=== PATIENT | male | born 1990 | race Two or more races ===

== ENCOUNTER → 2022-07-03 14:54 | Outpatient (BNVA) | payer OTHER, SELFPAY | PROVIDERS: Visit Provider Nurse Practitioner Psychiatric/Mental Health | DX: F11.20 Opioid dependence, uncomplicated (principal) | CPT/HCPCS: 80305; 99212 ==

== ENCOUNTER → 2022-07-10 15:17 | Outpatient (BNVA) | payer OTHER, SELFPAY | PROVIDERS: Visit Provider Nurse Practitioner Psychiatric/Mental Health | DX: F11.20 Opioid dependence, uncomplicated (principal); R61 Generalized hyperhidrosis; Z51.81 Encounter for therapeutic drug level monitoring | CPT/HCPCS: 80305; 99212 ==

== ENCOUNTER → 2022-07-17 14:36 | Outpatient (BNVA) | payer OTHER, SELFPAY | PROVIDERS: Visit Provider Nurse Practitioner Psychiatric/Mental Health | DX: Z51.81 Encounter for therapeutic drug level monitoring (principal); F11.20 Opioid dependence, uncomplicated | CPT/HCPCS: 80305; 99212 ==

== ENCOUNTER → 2022-07-28 14:55 | Outpatient (BNVA) | payer OTHER, SELFPAY | PROVIDERS: Visit Provider Nurse Practitioner Psychiatric/Mental Health | DX: Z51.81 Encounter for therapeutic drug level monitoring (principal); F11.20 Opioid dependence, uncomplicated | CPT/HCPCS: 99212 ==

== ENCOUNTER → 2022-08-05 10:56 | Outpatient (BNVA) | payer OTHER, SELFPAY | PROVIDERS: Visit Provider Nurse Practitioner Psychiatric/Mental Health | DX: F11.20 Opioid dependence, uncomplicated (principal) | CPT/HCPCS: 80305; 99212 ==

== ENCOUNTER → 2022-08-12 10:04 | Outpatient (BNVA) | payer OTHER, SELFPAY | PROVIDERS: Visit Provider Nurse Practitioner Psychiatric/Mental Health | DX: Z51.81 Encounter for therapeutic drug level monitoring (principal); F11.20 Opioid dependence, uncomplicated | CPT/HCPCS: 80305; 99212 ==

== ENCOUNTER → 2022-08-20 16:29 | Outpatient (BNVA) | payer OTHER, SELFPAY | PROVIDERS: Visit Provider Nurse Practitioner Psychiatric/Mental Health | DX: F11.20 Opioid dependence, uncomplicated (principal) | CPT/HCPCS: 99212 ==

== ENCOUNTER → 2022-09-04 16:18 | Outpatient (BNVA) | payer OTHER, SELFPAY | PROVIDERS: Visit Provider Nurse Practitioner Psychiatric/Mental Health | DX: F11.20 Opioid dependence, uncomplicated (principal) | CPT/HCPCS: 99212 ==

== ENCOUNTER → 2022-10-02 10:18 | Outpatient (BNVA) | payer OTHER, SELFPAY | PROVIDERS: Visit Provider Nurse Practitioner Psychiatric/Mental Health | DX: Z51.81 Encounter for therapeutic drug level monitoring (principal); F11.20 Opioid dependence, uncomplicated | CPT/HCPCS: 80305; 99212 ==

== ENCOUNTER → 2022-10-30 15:47 | Outpatient (BNVA) | payer OTHER, SELFPAY | PROVIDERS: Visit Provider Nurse Practitioner Psychiatric/Mental Health | DX: F11.20 Opioid dependence, uncomplicated (principal); Z51.81 Encounter for therapeutic drug level monitoring; Z79.899 Other long term (current) drug therapy | CPT/HCPCS: 99212 ==

== ENCOUNTER → 2022-11-27 16:35 | Outpatient (BNVA) | payer OTHER, SELFPAY | PROVIDERS: Visit Provider Nurse Practitioner Psychiatric/Mental Health | DX: Z51.81 Encounter for therapeutic drug level monitoring (principal); F11.20 Opioid dependence, uncomplicated | CPT/HCPCS: 99212 ==

== ENCOUNTER → 2022-12-25 16:23 | Outpatient (BNVA) | payer OTHER, SELFPAY | PROVIDERS: Visit Provider Nurse Practitioner Psychiatric/Mental Health | DX: Z51.81 Encounter for therapeutic drug level monitoring (principal); F11.20 Opioid dependence, uncomplicated | CPT/HCPCS: 99212 ==

== ENCOUNTER 2023-01-26 15:19 | Outpatient (AMB) | payer OTHER, SELFPAY ==
--- NOTE | 2023-01-26 15:19 | MHC.OFFVIS ---
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 Currently prescribed Suboxone 12 mg b.i.d.. Reports that he continues to do well with recovery. Denies any side effects related to medication. Reporting that he is currently looking for a new place to live as he has to leave his current residence by the end of the month. He reports that he has several people assisting him with this. Still has not completed lab work. Reminded that this needs to happen. Review of Systems Const Reports as per HPI and Reports no additional complaints Physical Exam Vital Signs: Last Vital Signs Pulse 78 01/26/23 15:27 BP 126/70 01/26/23 15:27 Pulse Ox 95 01/26/23 15:27 Oxygen Delivery Method Room Air 01/26/23 15:27 Const General: cooperative, healthy appearing, no acute distress and alert Nutritional Appearance: average body habitus Orientation/consciousness: patient oriented x3 Limitations: no limitations Neuro General: patient oriented x3 Psych Appearance: grossly normal Mental Status: mental status grossly normal Speech and movement: Normal speech and movement present Affect: normal affect Attitude: cooperative Thought process: Normal thought process present Thought content: Normal thought content present Insight: Good insight present (Psych) Judgement: Good judgement present (Psych) Results AMB 14 Panel Urine Drug Screen Urine Marijuana (THC) Positive Last Edit by Fadumo Arreola CMA on 01/26/23 15:29 Urine Cocaine Negative Last Edit by Fadumo Arreola CMA on 01/26/23 15:29 Urine Morphine Negative Last Edit by Fadumo Arreola CMA on 01/26/23 15:29 Urine Methamphetamine Negative Last Edit by Fadumo Arreola CMA on 01/26/23 15:29 Urine Amphetamine Negative Last Edit by Fadumo Arreola CMA on 01/26/23 15:29 Urine Benzodiazepine Negative Last Edit by Fadumo Arreola CMA on 01/26/23 15:29 Urine Barbiturates Negative Last Edit by Fadumo Arreola CMA on 01/26/23 15:29 Urine Methadone Negative Last Edit by Fadumo Arreola CMA on 01/26/23 15:29 Urine Buprenorphine Positive Last Edit by Fadumo Arreola CMA on 01/26/23 15:29 Urine Tricyclic Antidepressant Negative Last Edit by Fadumo Arreola CMA on 01/26/23 15:29 Urine MDMA Negative Last Edit by Fadumo Arreola CMA on 01/26/23 15:29 Urine Oxycodone Negative Last Edit by Fadumo Arreola CMA on 01/26/23 15:29 Urine Phencyclidine Negative Last Edit by Fadumo Arreola CMA on 01/26/23 15:29 Urine Propoxyphene Negative Last Edit by Fadumo Arreola CMA on 01/26/23 15:29 Results Reviewed Results Reviewed: Laboratory Last Values POC Urine Buprenorphine Positive 01/26/23 15:21 POC Urine Morphine Negative 01/26/23 15:21 POC Urine Oxycodone Negative 01/26/23 15:21 POC Urine Methadone Negative 01/26/23 15:21 POC Urine Propoxyphene Negative 01/26/23 15:21 POC Urine Barbiturates Negative 01/26/23 15:21 POC U Tricyclic Antidpr Negative 01/26/23 15:21 POC Urine PCP Negative 01/26/23 15:21 POC Ur Amphetamines Negative 01/26/23 15:21 POC Ur Methamphetamine Negative 01/26/23 15:21 POC Urine MDMA Negative 01/26/23 15:21 POC Ur Benzodiazepine Negative 01/26/23 15:21 POC Urine Cocaine Negative 01/26/23 15:21 POC Ur Marijuana (THC) Positive 01/26/23 15:21 Assessment & Plan Assessment & Plan (1) Opioid use disorder, moderate, dependence: Comment: Doing well with current suboxone dose, no concerns. Code(s): F11.20 - Opioid dependence, uncomplicated Plan 1. Continue with current suboxone dose. 2. Risk reduction discussion. 3. Follow-up in one month. labs to be completed prior to appointment Orders: Orders AMB 14 Panel Urine Drug Screen 01/26/23 Z51.81 - Encounter for therapeutic drug level monitoring Medications: Refilled buprenorphine-naloxone 12-3 mg (Suboxone) Okay for early refill 1 film sublingual BID 60 ea 0RF 30 days Discontinued hydroxyzine HCl Discontinued Reason: Patient Completed Course 50 mg PO QID PRN 28 tabs 0RF anxiety, sleep loperamide (Anti-Diarrheal (loperamide)) Discontinued Reason: Patient Completed Course As needed for diarrhea. Take 2 tablets as your 1st dose. Take 1 additional tablet after each episode of diarrhea. Do not use more than 6 tablets in 1 day. 28 caps 0RF loose stool digital therapeutics, OUD (Reset-O Digital Neelima (OUD)) Discontinued Reason: Patient Completed Course As directed (3-4 times a week) 84 days 1 ea 3RF OUD F11.10 - Opioid abuse, uncomplicated clonidine HCl Discontinued Reason: Patient Completed Course 0.1 mg PO Q6H PRN 28 tabs 0RF opioid withdrawals ondansetron HCl Discontinued Reason: Patient Completed Course 4 mg PO Q6H PRN 28 tabs 0RF nausea and vomiting digital therapeutics, OUD (Reset-O Digital Neelima (OUD)) Discontinued Reason: Patient Completed Course As directed (3-4 times a week) 84 days 1 ea 3RF OUD F11.10 - Opioid abuse, uncomplicated Coding Level of Care Code Est Pt Level 3 (44640) Diagnoses Opioid use disorder, moderate, dependence F11.20
[2023-01-26 15:27] VITALS: BP 126/70; PULSE 78; O2SAT 95
== END 2023-01-26 15:35 | disposition home or self-care (01) ==
LOC: HO.HCC 15:19
PROVIDERS: Visit Provider Nurse Practitioner Psychiatric/Mental Health
DX: F11.20 Opioid dependence, uncomplicated (principal)
CPT/HCPCS: 99213

== ENCOUNTER → 2023-01-26 15:19 | Outpatient (BNVA) | payer OTHER, SELFPAY | PROVIDERS: Visit Provider Nurse Practitioner Psychiatric/Mental Health | DX: Z51.81 Encounter for therapeutic drug level monitoring (principal); F11.20 Opioid dependence, uncomplicated | CPT/HCPCS: 80305; 99212 ==

== ENCOUNTER 2023-03-25 16:18 | Outpatient (AMB) | payer OTHER, SELFPAY ==
--- NOTE | 2023-03-25 16:20 | A.OFFVIS_ITS ---
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 Allergies acetaminophen [From VICODIN] Allergy (Unknown, Unverified 03/25/23 16:23) RASH hydrocodone [From VICODIN] Allergy (Unknown, Unverified 03/25/23 16:23) RASH ibuprofen [IBUPROFEN] Allergy (Unknown, Unverified 03/25/23 16:23) STOMACH PAIN Do you need a note to return to daycare/school/sports/work: No Physical Exam Vital Signs: Last Vital Signs Pulse 72 03/25/23 16:28 BP 110/68 03/25/23 16:28 Pulse Ox 96 03/25/23 16:28 Oxygen Delivery Method Room Air 03/25/23 16:28 Results AMB 14 Panel Urine Drug Screen Urine Marijuana (THC) Positive Last Edit by Fadumo Arreola CMA on 03/25/23 16:29 Urine Cocaine Negative Last Edit by Fadumo Arreola CMA on 03/25/23 16:29 Urine Morphine Negative Last Edit by Fadumo Arreola CMA on 03/25/23 16:29 Urine Methamphetamine Negative Last Edit by Fadumo Arreola CMA on 03/25/23 16:29 Urine Amphetamine Negative Last Edit by Fadumo Arreola CMA on 03/25/23 16:2 9 Urine Benzodiazepine Negative Last Edit by Fadumo Arreola CMA on 03/25/23 16:29 Urine Barbiturates Negative Last Edit by Fadumo Arreola CMA on 03/25/23 16: 29 Urine Methadone Negative Last Edit by Fadumo Arreola CMA on 03/25/23 16:29 Urine Buprenorphine Positive Last Edit by Fadumo Arreola CMA on 03/25/23 16 :29 Urine Tricyclic Antidepressant Negative Last Edit by Fadumo Arreola CMA on 03/25/23 16:29 Urine MDMA Negative Last Edit by Fadumo Arreola CMA on 03/25/23 16:29 Urine Oxycodone Negative Last Edit by Fadumo Arreola CMA on 03/25/23 16:29 Urine Phencyclidine Negative Last Edit by Fadumo Arreola CMA on 03/25/23 16 :29 Urine Propoxyphene Negative Last Edit by Fadumo Arreola CMA on 03/25/23 16: 29 Results Reviewed Results Reviewed: Laboratory Last Values POC Urine Buprenorphine Positive 03/25/23 16:23 POC Urine Morphine Negative 03/25/23 16:23 POC Urine Oxycodone Negative 03/25/23 16:23 POC Urine Methadone Negative 03/25/23 16:23 POC Urine Propoxyphene Negative 03/25/23 16:23 POC Urine Barbiturates Negative 03/25/23 16:23 POC U Tricyclic Antidpr Negative 03/25/23 16:23 POC Urine PCP Negative 03/25/23 16:23 POC Ur Amphetamines Negative 03/25/23 16:23 POC Ur Methamphetamine Negative 03/25/23 16:23 POC Urine MDMA Negative 03/25/23 16:23 POC Ur Benzodiazepine Negative 03/25/23 16:23 POC Urine Cocaine Negative 03/25/23 16:23 POC Ur Marijuana (THC) Positive 03/25/23 16:23 Assessment & Plan Assessment & Plan Orders: Orders AMB 14 Panel Urine Drug Screen Today Z51.81 - Encounter for therapeutic drug level monitoring Coding
[2023-03-25 16:28] VITALS: BP 110/68; PULSE 72; O2SAT 96
--- NOTE | 2023-03-25 16:40 | AM.OFFVISNUR ---
Intake Vital Signs 03/25/23 16:28 BP 110/68 Blood Pressure Location Lt radial Position Sitting Pulse 72 Pulse Source Pulse Oximeter Pulse Oximetry (%) 96 Oxygen Delivery Method Room Air Intake Visit Reasons: mat visit Allergies acetaminophen [From VICODIN] Allergy (Unknown, Unverified 03/25/23 16:23) RASH hydrocodone [From VICODIN] Allergy (Unknown, Unverified 03/25/23 16:23) RASH ibuprofen [IBUPROFEN] Allergy (Unknown, Unverified 03/25/23 16:23) STOMACH PAIN Nursing Note Pt here for 4 week OUD follow up. Pt reports difficulty with transportation as barrier to making scheduled appts. Pt reports doing well on 12mg BUP daily. Pt denies cravings, withdrawal. Pt reports is working hard and does not think about using. Reviewed importance of lab work to be completed. Pt reports is afraid of needles, reviewed coping strategies, hydrating, stress ball. Pt verbalized understanding. Pt looking for housing. Appt in 4 weeks, reiterated importance of lab work prior to next appt. Refill sent to Provider. Results AMB 14 Panel Urine Drug Screen Urine Marijuana (THC) Positive Last Edit by Fadumo Arreola CMA on 03/25/23 16:29 Urine Cocaine Negative Last Edit by Fadumo Arreola CMA on 03/25/23 16:29 Urine Morphine Negative Last Edit by Fadumo Arreola CMA on 03/25/23 16:29 Urine Methamphetamine Negative Last Edit by Fadumo Arreola CMA on 03/25/23 16:29 Urine Amphetamine Negative Last Edit by Fadumo Arreola CMA on 03/25/23 16:29 Urine Benzodiazepine Negative Last Edit by Fadumo Arreola CMA on 03/25/23 16:29 Urine Barbiturates Negative Last Edit by Fadumo Arreola CMA on 03/25/23 16:29 Urine Methadone Negative Last Edit by Fadumo Arreola CMA on 03/25/23 16:29 Urine Buprenorphine Positive Last Edit by Fadumo Arreola CMA on 03/25/23 16:29 Urine Tricyclic Antidepressant Negative Last Edit by Fadumo Arreola CMA on 03/25/23 16:29 Urine MDMA Negative Last Edit by Fadumo Arreola CMA on 03/25/23 16:29 Urine Oxycodone Negative Last Edit by Fadumo Arreola CMA on 03/25/23 16:29 Urine Phencyclidine Negative Last Edit by Fadumo Arreola CMA on 03/25/23 16:29 Urine Propoxyphene Negative Last Edit by Fadumo Arreola CMA on 03/25/23 16:29 Coding Assessment & Plan Assessment & Plan Orders: Orders AMB 14 Panel Urine Drug Screen Today Z51.81 - Encounter for therapeutic drug level monitoring
== END 2023-03-25 16:42 | disposition home or self-care (01) ==
LOC: HO.HCC 16:18
PROVIDERS: Visit Provider Nurse Practitioner Psychiatric/Mental Health
DX: Z51.81 Encounter for therapeutic drug level monitoring (principal)

== ENCOUNTER → 2023-03-25 16:18 | Outpatient (BNVA) | payer OTHER, SELFPAY | PROVIDERS: Visit Provider Nurse Practitioner Psychiatric/Mental Health | DX: F11.20 Opioid dependence, uncomplicated (principal); Z51.81 Encounter for therapeutic drug level monitoring; Z79.899 Other long term (current) drug therapy | CPT/HCPCS: 80305 ==

== ENCOUNTER 2023-04-23 15:50 | Outpatient (REF) | payer OTHER, SELFPAY | END 2023-04-23 15:51 | disposition home or self-care (01) | LOC: HO.LAB 15:50 | PROVIDERS: Visit Provider Nurse Practitioner Psychiatric/Mental Health | DX: F11.20 Opioid dependence, uncomplicated (principal) | CPT/HCPCS: 36415; 80076; 86704; 86706; 86709; 86803; 87340; 99212 ==

== ENCOUNTER 2023-04-23 16:06 | Outpatient (AMB) | payer OTHER, SELFPAY ==
[2023-04-23 16:10] VITALS: BP 130/70; PULSE 78; O2SAT 98
--- NOTE | 2023-04-23 16:10 | MHC.OFFVIS ---
Intake Vital Signs 04/23/23 16:10 BP 130/70 Blood Pressure Location Lt radial Position Sitting Pulse 78 Pulse Source Pulse Oximeter Pulse Oximetry (%) 98 Oxygen Delivery Method Room Air Intake Visit Reasons: mat visit Intake Note: the patient presents for a mat visit Allergies acetaminophen [From VICODIN] Allergy (Unknown, Unverified 04/23/23 16:12) RASH hydrocodone [From VICODIN] Allergy (Unknown, Unverified 04/23/23 16:12) RASH ibuprofen [IBUPROFEN] Allergy (Unknown, Unverified 04/23/23 16:12) STOMACH PAIN Do you need a note to return to daycare/school/sports/work: No HPI mat visit HPI Details Pt presents for OUD treatment follow up Currently being prescribed SUboxone 12mg BID Denies any side effects related to medication completed lab work Review of Systems Const Reports as per HPI and Reports no additional complaints Physical Exam Vital Signs: Last Vital Signs Pulse 78 04/23/23 16:10 BP 130/70 04/23/23 16:10 Pulse Ox 98 04/23/23 16:10 Oxygen Delivery Method Room Air 04/23/23 16:10 Const General: cooperative, healthy appearing, no acute distress and alert Nutritional Appearance: average body habitus Orientation/consciousness: patient oriented x3 Limitations: no limitations Neuro General: patient oriented x3 Psych Appearance: grossly normal Mental Status: mental status grossly normal Speech and movement: Normal speech and movement present Affect: normal affect Attitude: cooperative Thought process: Normal thought process present Thought content: Normal thought content present Insight: Good insight present (Psych) Judgement: Good judgement present (Psych) Assessment & Plan Assessment & Plan (1) Opioid use disorder, moderate, dependence: Code(s): F11.20 - Opioid dependence, uncomplicated Plan: 1. Continue with current suboxone dose. 2. Risk reduction discussion. 3. Follow-up in one month. Medications: Changed From buprenorphine-naloxone 12-3 mg 1 film sublingual BID 14 days 28 ea 0RF To buprenorphine-naloxone 12-3 mg (Suboxone) 1 film sublingual BID 60 ea 0RF Coding Level of Care Code Est Pt Level 3 (22156) Diagnoses Opioid use disorder, moderate, dependence F11.20
== END 2023-04-23 16:27 | disposition home or self-care (01) ==
PROVIDERS: Visit Provider Nurse Practitioner Psychiatric/Mental Health
DX: F11.20 Opioid dependence, uncomplicated (principal)
CPT/HCPCS: 99213

== ENCOUNTER 2023-05-21 14:52 | Outpatient (AMB) | payer OTHER, SELFPAY ==
--- NOTE | 2023-05-21 15:25 | A.OFFVIS_ITS ---
Intake Vital Signs 05/21/23 15:26 BP 138/64 Blood Pressure Location Rt brachial Position Sitting Pulse 85 Pulse Source Pulse Oximeter Pulse Oximetry (%) 95 Oxygen Delivery Method Room Air Intake Visit Reasons: MAT Visit Allergies acetaminophen [From VICODIN] Allergy (Unknown, Unverified 04/23/23 16:12) RASH hydrocodone [From VICODIN] Allergy (Unknown, Unverified 04/23/23 16:12) RASH ibuprofen [IBUPROFEN] Allergy (Unknown, Unverified 04/23/23 16:12) STOMACH PAIN HPI MAT Visit HPI Details Presents for OUD treatment and follow up. Has been busy working, states he has been working 7 days a week- reminded to take time for self care and rest. Denies any concerns about recovery, says he has been in recovery for 5-6 months. No concerns about any side effects. Physical Exam Vital Signs: Last Vital Signs Pulse 85 05/21/23 15:26 BP 138/64 05/21/23 15:26 Pulse Ox 95 05/21/23 15:26 Oxygen Delivery Method Room Air 05/21/23 15:26 Const General: cooperative and healthy appearing Orientation/consciousness: patient oriented x3 Resp Effort & Inspection: normal respiratory effort Skin General skin exam: no rashes or lesions noted Neuro General: patient oriented x3 Psych Appearance: grossly normal and disheveled Mental Status: mental status grossly normal Affect: normal affect Attitude: cooperative Thought process: Normal thought process present Thought content: Normal thought content present Assessment & Plan Assessment & Plan (1) Opioid use disorder, moderate, dependence: Code(s): F11.20 - Opioid dependence, uncomplicated Plan: Continue suboxone- same dose Recovery supports discussed, 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 Follow up in 4 weeks. Plan reviewed with SUSI Hill Medications: Refilled buprenorphine-naloxone 12-3 mg (Suboxone) 1 film sublingual BID 60 ea 0RF Coding Level of Care Code Est Pt Level 3 (16106) Diagnoses Opioid use disorder, moderate, dependence F11.20
[2023-05-21 15:26] VITALS: BP 138/64; PULSE 85; O2SAT 95
== END 2023-05-21 15:14 | disposition home or self-care (01) ==
PROVIDERS: Visit Provider Nurse Practitioner Psychiatric/Mental Health
DX: F11.20 Opioid dependence, uncomplicated (principal)
CPT/HCPCS: 99213

== ENCOUNTER → 2023-05-21 14:52 | Outpatient (BNVA) | payer OTHER, SELFPAY | PROVIDERS: Visit Provider Nurse Practitioner Psychiatric/Mental Health | DX: F11.20 Opioid dependence, uncomplicated (principal) | CPT/HCPCS: 99212 ==

== ENCOUNTER 2023-06-18 16:34 | Outpatient (AMB) | payer OTHER, SELFPAY ==
--- NOTE | 2023-06-18 16:35 | MHC.AM.SUB ---
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 Allergies acetaminophen [From VICODIN] Allergy (Unknown, Unverified 06/18/23 16:41) RASH hydrocodone [From VICODIN] Allergy (Unknown, Unverified 06/18/23 16:41) RASH ibuprofen [IBUPROFEN] Allergy (Unknown, Unverified 06/18/23 16:41) STOMACH PAIN Do you need a note to return to daycare/school/sports/work: No HPI MAT Visit HPI Details Pt presents for OUD treatment follow up Currently being prescribed Suboxone 12mg BID Denies any side effects related to medication 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 Doing well overall, no questions or concerns at this time [facility] Medical History (Updated 06/23/23 @ 14:53 by Kasey Delarosa CNP) Opioid use disorder, moderate, dependence Review of Systems Const Reports as per HPI and Reports no additional complaints Physical Exam Vital Signs: Last Vital Signs Pulse 86 06/18/23 16:38 BP 140/88 H 06/18/23 16:38 Pulse Ox 97 06/18/23 16:38 Oxygen Delivery Method Room Air 06/18/23 16:38 Const General: cooperative and healthy appearing Orientation/consciousness: patient oriented x3 Skin General skin exam: no rashes or lesions noted Neuro General: patient oriented x3 Psych Appearance: grossly normal Mental Status: mental status grossly normal Affect: normal affect Attitude: cooperative Thought process: Normal thought process present Thought content: Normal thought content present Assessment & Plan Assessment & Plan (1) Opioid use disorder, moderate, in early remission: Code(s): F11.21 - Opioid dependence, in remission Plan: Continue Suboxone at current dose Follow up 4 weeks Medications: Refilled buprenorphine-naloxone 12-3 mg (Suboxone) 1 film sublingual BID 60 ea 0RF Coding Level of Care Code Est Pt Level 3 (82678) Diagnoses Opioid use disorder, moderate, in early remission F11.21
[2023-06-18 16:38] VITALS: BP 140/88; PULSE 86; O2SAT 97
== END 2023-06-18 16:52 | disposition home or self-care (01) ==
PROVIDERS: Visit Provider Nurse Practitioner Psychiatric/Mental Health
DX: F11.21 Opioid dependence, in remission (principal)
CPT/HCPCS: 99213

== ENCOUNTER → 2023-06-18 16:34 | Outpatient (BNVA) | payer OTHER, SELFPAY | PROVIDERS: Visit Provider Nurse Practitioner Psychiatric/Mental Health | DX: F11.21 Opioid dependence, in remission (principal) | CPT/HCPCS: 99212 ==

== ENCOUNTER 2023-08-27 11:23 | Outpatient (AMB) | payer OTHER, SELFPAY ==
--- NOTE | 2023-08-27 11:24 | A.OFFVISCC_ITS ---
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 just starting to feel sick/withdrawal symptoms today Has been tolerating 12mg bid, denies concerns for side effects [facility] Medical History (Updated 06/23/23 @ 14:53 by Kasey Delarosa CNP) Opioid use disorder, moderate, dependence Review of Systems Const Reports as per HPI Physical Exam Vital Signs: Last Vital Signs Pulse 82 08/27/23 11:29 BP 118/80 08/27/23 11:29 Pulse Ox 96 08/27/23 11:29 Oxygen Delivery Method Room Air 08/27/23 11:29 Const General: cooperative and healthy appearing Resp Effort & Inspection: normal respiratory effort Psych Appearance: grossly normal Mental Status: mental status grossly normal Speech and movement: Normal speech and movement present Affect: normal affect Attitude: cooperative Assessment & Plan Assessment & Plan (1) Opioid use disorder, moderate, in early remission: Code(s): F11.21 - Opioid dependence, in remission Plan: -Mass pat reviewed -Refill suboxone 12mg bid -Follow up 4 weeks -Reviewed with him he can call [facility] if he needs to be seen sooner Medications: Refilled buprenorphine-naloxone 12-3 mg (Suboxone) 1 film sublingual BID 60 ea 0RF Coding Level of Care Code Est Pt Level 3 (98104) Diagnoses Opioid use disorder, moderate, in early remission F11.21
[2023-08-27 11:29] VITALS: BP 118/80; PULSE 82; O2SAT 96
== END 2023-08-27 13:02 | disposition home or self-care (01) ==
PROVIDERS: Visit Provider Nurse Practitioner Family
DX: F11.21 Opioid dependence, in remission (principal)
CPT/HCPCS: 99213

== ENCOUNTER → 2023-08-27 11:23 | Outpatient (BNVA) | payer OTHER, SELFPAY | PROVIDERS: Visit Provider Nurse Practitioner Family | DX: F11.21 Opioid dependence, in remission (principal) | CPT/HCPCS: 99212 ==

== ENCOUNTER 2023-09-23 16:49 | Outpatient (AMB) | payer OTHER, SELFPAY ==
--- NOTE | 2023-09-23 16:50 | MHC.AM.SUB ---
Intake Vital Signs 09/23/23 17:01 BP 124/78 Blood Pressure Location Lt radial Position Sitting Pulse 78 Pulse Source Pulse Oximeter Pulse Oximetry (%) 97 Oxygen Delivery Method Room Air Intake Visit Reasons: MAT Visit Intake Note: the patient presents for a mat visit Time Study Analyst Required: No Allergies acetaminophen [From VICODIN] Allergy (Unknown, Unverified 09/23/23 17:03) RASH hydrocodone [From VICODIN] Allergy (Unknown, Unverified 09/23/23 17:03) RASH ibuprofen [IBUPROFEN] Allergy (Unknown, Unverified 09/23/23 17:03) STOMACH PAIN Do you need a note to return to daycare/school/sports/work: No HPI MAT Visit HPI Details Patient presents for MAT appointment Reports he has been doing well, 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 been tolerating 12mg suboxone bid well Going to [place] for a week to visit family No concerns for recovery at this time [facility] Medical History (Updated 06/23/23 @ 14:53 by Kasey Delarosa CNP) Opioid use disorder, moderate, dependence Review of Systems Const Reports as per HPI Physical Exam Vital Signs: Last Vital Signs Pulse 78 09/23/23 17:01 BP 124/78 09/23/23 17:01 Pulse Ox 97 09/23/23 17:01 Oxygen Delivery Method Room Air 09/23/23 17:01 Const General: cooperative Resp Effort & Inspection: normal respiratory effort Psych Appearance: grossly normal Mental Status: mental status grossly normal Speech and movement: Normal speech and movement present Affect: normal affect Attitude: cooperative Thought process: Normal thought process present Results AMB 14 Panel Urine Drug Screen Urine Marijuana (THC) Positive Last Edit by Fadumo Arreola CMA on 09/23/23 17:04 Urine Cocaine Negative Last Edit by Fadumo Arreola CMA on 09/23/23 17:04 Urine Morphine Negative Last Edit by Fadumo Arreola CMA on 09/23/23 17:04 Urine Methamphetamine Negative Last Edit by Fadumo Arreola CMA on 09/23/23 17:04 Urine Amphetamine Negative Last Edit by Fadumo Arreola CMA on 09/23/23 17:04 Urine Benzodiazepine Negative Last Edit by Fadumo Arreola CMA on 09/23/23 17:04 Urine Barbiturates Negative Last Edit by Fadumo Arreola CMA on 09/23/23 17:04 Urine Methadone Negative Last Edit by aFdumo Arreola CMA on 09/23/23 17:04 Urine Buprenorphine Positive Last Edit by Fadumo Arreola CMA on 09/23/23 17:04 Urine Tricyclic Antidepressant Negative Last Edit by Fadumo Arreola CMA on 09/23/23 17:04 Urine MDMA Negative Last Edit by Fadumo Arreola CMA on 09/23/23 17:04 Urine Oxycodone Negative Last Edit by Fadumo Arreola CMA on 09/23/23 17:04 Urine Phencyclidine Negative Last Edit by Fadumo Arreola CMA on 09/23/23 17:04 Urine Propoxyphene Negative Last Edit by Fadumo Arreola CMA on 09/23/23 17:04 Results Reviewed Results Reviewed: Laboratory Last Values POC Urine Buprenorphine Positive 09/23/23 16:50 POC Urine Morphine Negative 09/23/23 16:50 POC Urine Oxycodone Negative 09/23/23 16:50 POC Urine Methadone Negative 09/23/23 16:50 POC Urine Propoxyphene Negative 09/23/23 16:50 POC Urine Barbiturates Negative 09/23/23 16:50 POC U Tricyclic Antidpr Negative 09/23/23 16:50 POC Urine PCP Negative 09/23/23 16:50 POC Ur Amphetamines Negative 09/23/23 16:50 POC Ur Methamphetamine Negative 09/23/23 16:50 POC Urine MDMA Negative 09/23/23 16:50 POC Ur Benzodiazepine Negative 09/23/23 16:50 POC Urine Cocaine Negative 09/23/23 16:50 POC Ur Marijuana (THC) Positive 09/23/23 16:50 Assessment & Plan Assessment & Plan (1) Opioid use disorder, moderate, in early remission: Code(s): F11.21 - Opioid dependence, in remission Plan: -Mass pat reviewed -Continue suboxone same dose -Follow up 4 weeks Orders: Orders AMB 14 Panel Urine Drug Screen 09/23/23 Z51.81 - Encounter for therapeutic drug level monitoring Medications: Refilled buprenorphine-naloxone 12-3 mg (Suboxone) 1 film sublingual BID 60 ea 0RF Coding Level of Care Code Est Pt Level 3 (84706) Diagnoses Opioid use disorder, moderate, in early remission F11.21
[2023-09-23 17:01] VITALS: BP 124/78; PULSE 78; O2SAT 97
== END 2023-09-23 17:08 | disposition home or self-care (01) ==
LOC: HO.HCC 16:50
PROVIDERS: Visit Provider Nurse Practitioner Family
DX: F11.21 Opioid dependence, in remission (principal)
CPT/HCPCS: 99213

== ENCOUNTER → 2023-09-23 16:49 | Outpatient (BNVA) | payer OTHER, SELFPAY | PROVIDERS: Visit Provider Nurse Practitioner Family | DX: F11.21 Opioid dependence, in remission (principal) | CPT/HCPCS: 80305; 99212 ==

== ENCOUNTER 2023-10-21 16:33 | Outpatient (AMB) | payer OTHER, SELFPAY ==
--- NOTE | 2023-10-21 16:35 | A.OFFVISCC_ITS ---
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: No Allergies acetaminophen [From VICODIN] Allergy (Unknown, Unverified 10/21/23 16:41) RASH hydrocodone [From VICODIN] Allergy (Unknown, Unverified 10/21/23 16:41) RASH ibuprofen [IBUPROFEN] Allergy (Unknown, Unverified 10/21/23 16:41) STOMACH PAIN Do you need a note to return to daycare/school/sports/work: No HPI mat visit HPI Details Pt presents for MAT visit Reports he was unable to go to [place] due to getting a partial refill instead of a whole refill He reports his boss has his films in his car, has had them for the past few days, boss went on mj and pt was left without his films Reports he is feeling badly and in withdrawal (hands visibly trembling, abd pain, nausea, sweats) States he almost relapsed Is hoping to go to [place] once he gets his script sorted out HPI Comments History of Present Illness Details Patient presents for MAT visit [facility] Medical History (Updated 06/23/23 @ 14:53 by Kasey Delarosa CNP) Opioid use disorder, moderate, dependence Review of Systems Const Reports as per HPI Physical Exam Vital Signs: Last Vital Signs Pulse 85 10/21/23 16:40 BP 128/86 10/21/23 16:40 Pulse Ox 96 10/21/23 16:40 Oxygen Delivery Method Room Air 10/21/23 16:40 Const General: cooperative, anxious and diaphoretic Resp Effort & Inspection: normal respiratory effort and able to speak in complete sentences Psych Appearance: disheveled Mental Status: mental status grossly normal Speech and movement: Psychomotor agitation in speech present Affect: Anxious affect present Attitude: cooperative Thought process: Normal thought process present Results AMB 14 Panel Urine Drug Screen Urine Marijuana (THC) Positive Last Edit by Fadumo Arreola CMA on 10/21/23 16:42 Urine Cocaine Negative Last Edit by Fadumo Arreola CMA on 10/21/23 16:42 Urine Morphine Negative Last Edit by Fadumo Arreola CMA on 10/21/23 16:42 Urine Methamphetamine Negative Last Edit by Fadumo Arreola CMA on 10/21/23 16:42 Urine Amphetamine Negative Last Edit by Fadumo Arreola CMA on 10/21/23 16:4 2 Urine Benzodiazepine Negative Last Edit by Fadumo Arreola CMA on 10/21/23 1 6: 42 Urine Barbiturates Negative Last Edit by Fadumo Arreola CMA on 10/21/23 16: 42 Urine Methadone Negative Last Edit by Fadumo Arreola CMA on 10/21/23 16:42 Urine Buprenorphine Positive Last Edit by Fadumo Arreola CMA on 10/21/23 16 :42 Urine Tricyclic Antidepressant Negative Last Edit by Fadumo Arreola CMA on 10/21/23 16:42 Urine MDMA Negative Last Edit by Fadumo Arreola CMA on 10/21/23 16:42 Urine Oxycodone Negative Last Edit by Fadumo Arreola CMA on 10/21/23 16:42 Urine Phencyclidine Negative Last Edit by Fadumo Arreola CMA on 10/21/23 16 :42 Urine Propoxyphene Negative Last Edit by Fadumo Arreola CMA on 10/21/23 16: 42 Results Reviewed Results Reviewed: Laboratory Last Values POC Urine Buprenorphine Positive 10/21/23 16:35 POC Urine Morphine Negative 10/21/23 16:35 POC Urine Oxycodone Negative 10/21/23 16:35 POC Urine Methadone Negative 10/21/23 16:35 POC Urine Propoxyphene Negative 10/21/23 16:35 POC Urine Barbiturates Negative 10/21/23 16:35 POC U Tricyclic Antidpr Negative 10/21/23 16:35 POC Urine PCP Negative 10/21/23 16:35 POC Ur Amphetamines Negative 10/21/23 16:35 POC Ur Methamphetamine Negative 10/21/23 16:35 POC Urine MDMA Negative 10/21/23 16:35 POC Ur Benzodiazepine Negative 10/21/23 16:35 POC Urine Cocaine Negative 10/21/23 16:35 POC Ur Marijuana (THC) Positive 10/21/23 16:35 Assessment & Plan Assessment & Plan (1) Opioid use disorder, moderate, in early remission: Code(s): F11.21 - Opioid dependence, in remission Plan: -Refilled suboxone 12mg BID -Request by pt to send to different pharmacy than originally sent to (pharmacy had none in stock) -Follow up 4 weeks, call clinic if needs to be seen sooner Orders: Orders AMB 14 Panel Urine Drug Screen 10/21/23 Z51.81 - Encounter for therapeutic drug level monitoring Medications: Refilled buprenorphine-naloxone 12-3 mg (Suboxone) 1 film sublingual BID 60 ea 0RF buprenorphine-naloxone 12-3 mg (Suboxone) 1 film sublingual BID 60 ea 0RF buprenorphine-naloxone 12-3 mg (Suboxone) 1 film sublingual BID 60 ea 0RF Coding Level of Care Code Est Pt Level 3 (71128) Diagnoses Opioid use disorder, moderate, in early remission F11.21
[2023-10-21 16:40] VITALS: BP 128/86; PULSE 85; O2SAT 96
== END 2023-10-21 16:57 | disposition home or self-care (01) ==
PROVIDERS: Visit Provider Nurse Practitioner Family
DX: F11.21 Opioid dependence, in remission (principal)
CPT/HCPCS: 99213

== ENCOUNTER → 2023-10-21 16:33 | Outpatient (BNVA) | payer OTHER, SELFPAY | PROVIDERS: Visit Provider Nurse Practitioner Family | DX: F11.21 Opioid dependence, in remission (principal); Z79.899 Other long term (current) drug therapy; Z51.81 Encounter for therapeutic drug level monitoring | CPT/HCPCS: 80305; 99212 ==

== ENCOUNTER 2023-12-21 16:15 | Outpatient (AMB) | payer OTHER, SELFPAY ==
--- NOTE | 2023-12-21 16:19 | A.OFFVISCC_ITS ---
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 from medications [facility] Medical History (Updated 12/22/23 @ 11:57 by Kasey Delarosa CNP) Opioid use disorder, moderate, in early remission Opioid use disorder, moderate, dependence Review of Systems Const Reports as per HPI and Reports no additional complaints Physical Exam Const General: cooperative, healthy appearing and no acute distress Nutritional Appearance: thin Orientation/consciousness: patient oriented x3 Limitations: no limitations Neuro General: patient oriented x3 Assessment & Plan Assessment & Plan (1) Opioid use disorder, moderate, in sustained remission: Code(s): F11.21 - Opioid dependence, in remission Category: Medical Plan: * continue suboxone at current dose * relapse prevention discussion * follow up 8 weeks * encouraged to call office with any questions * rx provided with one refill Medications: Refilled buprenorphine-naloxone 12-3 mg (Suboxone) 1 film sublingual BID 60 ea 0RF Ruthie Hill NP buprenorphine-naloxone 12-3 mg (Suboxone) 1 film sublingual BID 60 ea 1RF Kasey Delarosa CNP
== END 2023-12-21 16:38 | disposition home or self-care (01) ==
PROVIDERS: Visit Provider Nurse Practitioner Psychiatric/Mental Health
DX: F11.21 Opioid dependence, in remission (principal)
CPT/HCPCS: 99213

== ENCOUNTER → 2023-12-21 16:15 | Outpatient (BNVA) | payer OTHER, SELFPAY | PROVIDERS: Visit Provider Nurse Practitioner Psychiatric/Mental Health | DX: F11.20 Opioid dependence, uncomplicated (principal) | CPT/HCPCS: 99212 ==

== ENCOUNTER 2024-02-16 13:25 | Outpatient (AMB) | payer OTHER, SELFPAY ==
--- NOTE | 2024-02-16 13:35 | A.OFFVISCC_ITS ---
Intake Visit Reasons: mat visit Allergies acetaminophen [From VICODIN] Allergy (Unknown, Unverified 10/21/23 16:41) RASH hydrocodone [From VICODIN] Allergy (Unknown, Unverified 10/21/23 16:41) RASH ibuprofen [IBUPROFEN] Allergy (Unknown, Unverified 10/21/23 16:41) STOMACH PAIN HPI HPI mat visit: Details: Patient presents for follow up Currently prescribed Suboxone 12mg BID Doing well with current dose -no side effects reported Recently lost his job due to employer moving, he states this has caused an increase in stress and trouble sleeping PFS Medical History (Updated 12/22/23 @ 11:57 by Kasey Delarosa CNP) Opioid use disorder, moderate, in early remission Opioid use disorder, moderate, dependence Review of Systems Const Reports as per HPI and Reports no additional complaints Physical Exam Const General: cooperative, healthy appearing and well groomed Nutritional Appearance: average body habitus Orientation/consciousness: patient oriented x3 Limitations: no limitations Neuro General: patient oriented x3 Assessment & Plan Assessment & Plan (1) Opioid use disorder, moderate, in sustained remission: Code(s): F11.21 - Opioid dependence, in remission Category: Medical Plan: * continue suboxone at current dose * relapse prevention discussion * refill already sent in * trazodone PRN for sleep -will have RN follow up regarding effectiveness Medications: New trazodone 50 mg PO BEDTIME PRN 20 tabs 0RF sleep
== END 2024-02-16 13:36 | disposition home or self-care (01) ==
PROVIDERS: Visit Provider Nurse Practitioner Psychiatric/Mental Health
DX: F11.21 Opioid dependence, in remission (principal)
CPT/HCPCS: 99214

== ENCOUNTER → 2024-02-16 13:25 | Outpatient (BNVA) | payer OTHER, SELFPAY | PROVIDERS: Visit Provider Nurse Practitioner Psychiatric/Mental Health | DX: F11.21 Opioid dependence, in remission (principal) | CPT/HCPCS: 99212 ==

== ENCOUNTER 2024-06-02 10:49 | Outpatient (AMB) | payer OTHER, SELFPAY ==
--- NOTE | 2024-06-02 11:38 | A.OFFVISCC_ITS ---
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 GM was there for a month Since returning he is back to working FT no issues related to recovery --has been taking suboxone without issue Review of Systems Const Reports as per HPI and Reports no additional complaints Physical Exam Const General: cooperative, healthy appearing and well groomed Nutritional Appearance: average body habitus Orientation/consciousness: patient oriented x3 Limitations: no limitations Neuro General: patient oriented x3 Assessment & Plan Assessment & Plan (1) Opioid use disorder, moderate, in sustained remission: Code(s): F11.21 - Opioid dependence, in remission Category: Medical Plan: * continue suboxone at current dose * follow up 2 months Medications: Refilled buprenorphine-naloxone 12-3 mg (Suboxone) 1 film sublingual BID 60 ea 1RF PFSH Medical History (Updated 04/17/24 @ 12:05 by Kaesy Delarosa CNP) Opioid use disorder, moderate, in early remission Opioid use disorder, moderate, dependence
== END 2024-06-02 11:42 | disposition home or self-care (01) ==
PROVIDERS: Visit Provider Nurse Practitioner Psychiatric/Mental Health
DX: F11.21 Opioid dependence, in remission (principal)
CPT/HCPCS: 99213

== ENCOUNTER → 2024-06-02 10:49 | Outpatient (BNVA) | payer OTHER, SELFPAY | PROVIDERS: Visit Provider Nurse Practitioner Psychiatric/Mental Health | DX: F11.21 Opioid dependence, in remission (principal); Z51.81 Encounter for therapeutic drug level monitoring | CPT/HCPCS: 99212 ==

== ENCOUNTER 2024-09-13 15:18 | Outpatient (AMB) | payer OTHER, SELFPAY ==
--- NOTE | 2024-09-13 15:21 | A.OFFVISCC_ITS ---
Intake Visit Reasons: MAT Office Allergies acetaminophen [From VICODIN] Allergy (Unknown, Unverified 10/21/23 16:41) RASH hydrocodone [From VICODIN] Allergy (Unknown, Unverified 10/21/23 16:41) RASH ibuprofen [IBUPROFEN] Allergy (Unknown, Unverified 10/21/23 16:41) STOMACH PAIN HPI HPI MAT Office: Details: Patient presents for follow up Currently prescribed Suboxone 12mg BID Tolerating current dose Had to move in with his mother in [place], because tenants at previous apt where he was renting a room, were not paying rent Still working No questions or concerns at this time Review of Systems Const Reports as per HPI and Reports no additional complaints Physical Exam Const General: cooperative, healthy appearing and well groomed Nutritional Appearance: average body habitus Orientation/consciousness: patient oriented x3 Limitations: no limitations Neuro General: patient oriented x3 [facility] Medical History (Updated 04/17/24 @ 12:05 by Kasey Delarosa CNP) Opioid use disorder, moderate, in early remission Opioid use disorder, moderate, dependence Assessment & Plan Assessment & Plan (1) Opioid use disorder, moderate, in sustained remission: Code(s): F11.21 - Opioid dependence, in remission Category: Medical Plan: * continue suboxone at current dose * follow up 2 months Medications: Refilled buprenorphine-naloxone 12-3 mg (Suboxone) 1 film sublingual BID 60 ea 1RF
== END 2024-09-13 15:36 | disposition home or self-care (01) ==
PROVIDERS: Visit Provider Nurse Practitioner Psychiatric/Mental Health
DX: F11.21 Opioid dependence, in remission (principal)
CPT/HCPCS: 99213

== ENCOUNTER → 2024-09-13 15:18 | Outpatient (BNVA) | payer OTHER, SELFPAY | PROVIDERS: Visit Provider Nurse Practitioner Psychiatric/Mental Health | DX: F11.20 Opioid dependence, uncomplicated (principal) | CPT/HCPCS: 99212 ==

== ENCOUNTER 2024-12-04 15:03 | Outpatient (AMB) | payer OTHER, SELFPAY ==
[2024-12-04 15:50] VITALS: PULSE 88; O2SAT 96
--- NOTE | 2024-12-04 15:50 | MHC.OFFVIS ---
Vital Signs 12/04/24 15:50 Pulse 88 Pulse Source Pulse Oximeter Pulse Oximetry (%) 96 Oxygen Delivery Method Room Air Intake Visit Reasons: MAT Allergies acetaminophen [From VICODIN] Allergy (Unknown, Unverified 10/21/23 16:41) RASH hydrocodone [From VICODIN] Allergy (Unknown, Unverified 10/21/23 16:41) RASH ibuprofen [IBUPROFEN] Allergy (Unknown, Unverified 10/21/23 16:41) STOMACH PAIN HPI HPI MAT: Details: He is uncomfortable due to kidney stones He otherwise feels well He is going to ER. [facility] Medical History Opioid use disorder, moderate, in early remission Opioid use disorder, moderate, dependence Review of Systems Const All systems reviewed & are unremarkable except as noted in HPI and below Physical Exam Vital Signs: Last Vital Signs Pulse 88 12/04/24 15:50 Pulse Ox 96 12/04/24 15:50 Oxygen Delivery Method Room Air 12/04/24 15:50 Const General: cooperative Assessment & Plan Assessment & Plan (1) Opioid use disorder, moderate, in sustained remission: Comment: He has discomfort due to kidney stones Code(s): F11.21 - Opioid dependence, in remission Category: Medical Plan: Suboxone 12/3 bid,60 and one refill sent. See in two months. Medications: New buprenorphine-naloxone 12-3 mg (Suboxone) 1 film sublingual BID 60 ea 1RF 30 days Coding Level of Care Code Est Pt Level 3 (67726) Diagnoses Opioid use disorder, moderate, in sustained remission F11.21
== END 2024-12-04 15:55 | disposition home or self-care (01) ==
LOC: HO.HCC 15:03
PROVIDERS: Visit Provider Internal Medicine
DX: F11.21 Opioid dependence, in remission (principal)
CPT/HCPCS: 99213

== ENCOUNTER → 2024-12-04 15:03 | Outpatient (BNVA) | payer OTHER, SELFPAY | PROVIDERS: Visit Provider Internal Medicine | DX: F11.21 Opioid dependence, in remission (principal) | CPT/HCPCS: 99212 ==

== ENCOUNTER 2025-01-31 16:52 | Outpatient (AMB) | payer OTHER, SELFPAY ==
--- NOTE | 2025-02-02 13:56 | MHC.AM.SUB ---
Intake Visit Reasons: MAT visit telehealth ok per Allergies acetaminophen (From VICODIN) Allergy (Unknown, Unverified 10/21/23 16:41) RASH hydrocodone (From VICODIN) Allergy (Unknown, Unverified 10/21/23 16:41) RASH ibuprofen (IBUPROFEN) Allergy (Unknown, Unverified 10/21/23 16:41) STOMACH PAIN HPI Comments Details: He is doing well. He is not using. Review of Systems Const All systems reviewed & are unremarkable except as noted in HPI and below Telehealth Telehealth Telehealth Platform: Telephone Location of provider rendering services: practice address Location of patient: address on file Patient Identification confirmed using: Name, : Yes Telehealth method: voice only Patient verbally consented to treatment: Yes Patient verbally consented to billing insurance company: Yes Patient informed of any privacy concerns related to visit: Yes Minutes spent on Phone/Video with Pt.: 20 [facility] Medical History Opioid use disorder, moderate, in early remission Opioid use disorder, moderate, dependence Assessment & Plan Assessment & Plan (1) Opioid use disorder, moderate, in sustained remission: Comment: He has discomfort due to kidney stones Code(s): F11.21 - Opioid dependence, in remission Category: Medical Plan: Continue script ,written. See as scheduled. Medications: New buprenorphine-naloxone 12-3 mg (Suboxone) 1 film sublingual BID 60 ea 0RF 30 days
== END 2025-01-31 16:52 | disposition home or self-care (01) ==
LOC: HO.HCC 16:52
PROVIDERS: Visit Provider Internal Medicine
DX: F11.21 Opioid dependence, in remission (principal)
CPT/HCPCS: 99213

== ENCOUNTER → 2025-01-31 16:52 | Outpatient (BNVA) | payer OTHER, SELFPAY | PROVIDERS: Visit Provider Internal Medicine | DX: F11.21 Opioid dependence, in remission (principal) | CPT/HCPCS: 99212 ==

== ENCOUNTER 2025-03-02 15:13 | Outpatient (AMB) | payer OTHER, SELFPAY ==
[2025-03-02 15:19] VITALS: PULSE 85; O2SAT 98
--- NOTE | 2025-03-02 15:19 | MHC.OFFVIS ---
Vital Signs 03/02/25 15:19 Weight 133 lb Pulse 85 Pulse Source Pulse Oximeter Pulse Oximetry (%) 98 Oxygen Delivery Method Room Air Intake Visit Reasons: MAT Allergies acetaminophen (From VICODIN) Allergy (Unknown, Verified 03/02/25 15:20) RASH hydrocodone (From VICODIN) Allergy (Unknown, Verified 03/02/25 15:20) RASH ibuprofen (IBUPROFEN) Allergy (Unknown, Verified 03/02/25 15:20) STOMACH PAIN HPI HPI MAT: Details: He is doing well with 12/3 bid Suboxone. He is interested in Trazodone for sleep. [facility] Medical History Opioid use disorder, moderate, in early remission Opioid use disorder, moderate, dependence Review of Systems Const All systems reviewed & are unremarkable except as noted in HPI and below Physical Exam Vital Signs: Last Vital Signs Pulse 85 03/02/25 15:19 Pulse Ox 98 03/02/25 15:19 Oxygen Delivery Method Room Air 03/02/25 15:19 Const General: cooperative Assessment & Plan Assessment & Plan (1) Opioid use disorder, moderate, in sustained remission: Comment: He is doing well Code(s): F11.21 - Opioid dependence, in remission Category: Medical Plan: Continue Suboxone 12/3 bid One month and one refill. Add Trazodone for sleep. Medications: New buprenorphine-naloxone 12-3 mg (Suboxone) 1 film sublingual BID 60 ea 1RF 30 days trazodone 50 mg PO BEDTIME PRN 30 tab-caps 5RF sleep 30 days Coding Level of Care Code Est Pt Level 3 (34683) Diagnoses Opioid use disorder, moderate, in sustained remission F11.21
== END 2025-03-02 15:39 | disposition home or self-care (01) ==
LOC: HO.HCC 15:13
PROVIDERS: Visit Provider Internal Medicine
DX: F11.21 Opioid dependence, in remission (principal)
CPT/HCPCS: 99213

== ENCOUNTER → 2025-03-02 15:13 | Outpatient (BNVA) | payer OTHER, SELFPAY | PROVIDERS: Visit Provider Internal Medicine | DX: F11.21 Opioid dependence, in remission (principal) | CPT/HCPCS: 99212 ==

== ENCOUNTER 2025-05-02 15:26 | Outpatient (AMB) | payer OTHER, SELFPAY ==
[2025-05-02 15:32] VITALS: BP 140/80; PULSE 77; O2SAT 98
--- NOTE | 2025-05-02 15:32 | A.OFFVIS_ITS ---
Vital Signs 05/02/25 15:32 BP 140/80 H Pulse 77 Pulse Oximetry (%) 98 Intake Visit Reasons: MAT Allergies acetaminophen (From VICODIN) Allergy (Unknown, Verified 05/02/25 15:35) RASH hydrocodone (From VICODIN) Allergy (Unknown, Verified 05/02/25 15:35) RASH ibuprofen (IBUPROFEN) Allergy (Unknown, Verified 05/02/25 15:35) STOMACH PAIN Medication List - Last Reconciled 05/02/25 by LOW CalderónC buprenorphine-naloxone 12-3 mg (Suboxone) 1 film sublingual BID 30 days naloxone 4 mg/actuation (Narcan) 4 mg intranasal Q2M PRN trazodone 50 mg PO BEDTIME PRN trazodone 50 mg PO BEDTIME PRN 30 days HPI Comments Details: A 34-year-old male presents for a follow-up visit r/t ARIANA in sustained remission with buprenorphine-naloxone 12-3 mg BID. Denies use of opiates, alcohol, and other substances. Acknowledges he continues to smoke cigarettes and is working on reducing frequency and quantity. During the visit c/o severe abdominal discomfort of unknown origin which began last night. Patient reports he will be following up with the emergency department after completing visit. [facility] Medical History Opioid use disorder, moderate, in early remission Opioid use disorder, moderate, dependence Review of Systems Const All systems reviewed & are unremarkable except as noted in HPI and below GI Reports abdominal pain (Reports abdominal pain began last night, unknown origin. ) Physical Exam Vital Signs: Last Vital Signs Pulse 77 05/02/25 15:32 BP 140/80 H 05/02/25 15:32 Pulse Ox 98 05/02/25 15:32 Const General: cooperative Assessment & Plan Assessment & Plan (1) Opioid use disorder, moderate, in sustained remission: Comment: He is doing well Code(s): F11.21 - Opioid dependence, in remission Category: Medical Plan The plan of care is to continue with buprenorphine-naloxone 12-3 mg BID, and follow-up in 2 months or sooner if needed. Medications: Refilled buprenorphine-naloxone 12-3 mg (Suboxone) 1 film sublingual BID 60 ea 1RF 30 days Patient Instructions: - Continue with buprenorphine-naloxone as prescribed. - Follow up with emergency department for severe abdominal pain. - Follow-up in 2 months or sooner if needed. - Call with questions, concerns, or to report side effects/new onset of symptoms to [facility]. - The patient verbalized understanding and agreed with plan of care. Coding Level of Care Code Est Pt Level 3 (33322) Diagnoses Opioid use disorder, moderate, in sustained remission F11.21
== END 2025-05-02 15:37 | disposition home or self-care (01) ==
LOC: HO.HCC 15:26
PROVIDERS: Visit Provider Clinical Nurse Specialist Psychiatric/Mental Health
DX: F11.21 Opioid dependence, in remission (principal)
CPT/HCPCS: 99213

== ENCOUNTER → 2025-05-02 15:26 | Outpatient (BNVA) | payer OTHER, SELFPAY | PROVIDERS: Visit Provider Clinical Nurse Specialist Psychiatric/Mental Health | DX: F11.21 Opioid dependence, in remission (principal) | CPT/HCPCS: 99212 ==

== ENCOUNTER 2025-07-02 14:20 | Outpatient (AMB) | payer OTHER, SELFPAY ==
[2025-07-02 14:24] VITALS: BP 118/68; PULSE 76; O2SAT 96
--- NOTE | 2025-07-02 14:24 | A.OFFVISCC_ITS ---
Vital Signs 07/02/25 14:24 BP 118/68 Pulse 76 Pulse Oximetry (%) 96 Intake Visit Reasons: MAT Allergies acetaminophen (From VICODIN) Allergy (Unknown, Verified 07/02/25 14:25) RASH hydrocodone (From VICODIN) Allergy (Unknown, Verified 07/02/25 14:25) RASH ibuprofen (IBUPROFEN) Allergy (Unknown, Verified 07/02/25 14:25) STOMACH PAIN HPI Comments Details: A 34-year-old male presents for a follow-up visit r/t ARIANA in sustained remission with buprenorphine-naloxone 12-3 mg BID. Denies use of opiates, alcohol, and other substances. Reports continuing to smoke cigarettes and is working towards decreasing quantity and frequency. Review of Systems Const All systems reviewed & are unremarkable except as noted in HPI and below Physical Exam Vital Signs: Last Vital Signs Pulse 76 07/02/25 14:24 BP 118/68 07/02/25 14:24 Pulse Ox 96 07/02/25 14:24 Const General: cooperative [facility] Medical History Opioid use disorder, moderate, in early remission Opioid use disorder, moderate, dependence Social History: Lives with significant other and 2 children Assessment & Plan Assessment & Plan (1) Opioid use disorder, moderate, in sustained remission: Comment: He is doing well Code(s): F11.21 - Opioid dependence, in remission Category: Medical Plan The plan of care is to continue with buprenorphine-naloxone 12-3 mg BID. Engage in risk reduction activities to minimize frequency/quantity of cigarette smoking. Follow-up in 2 months or sooner if needed. Medications: Changed From buprenorphine-naloxone 12-3 mg (Suboxone) 1 film sublingual BID 30 days 60 ea 1RF To buprenorphine-naloxone 12-3 mg (Suboxone) One film sublingually twice per day 1 film sublingual BID 60 ea 1RF 30 days Patient Instructions: - Continue with buprenorphine-naloxone as prescribed. - Engage in risk reduction activities to minimize frequency/quantity of cigarette smoking. - Call with questions, concerns, or to report side effects/new onset of symptoms to [facility]. - The patient verbalized understanding and agreed with plan of care.
== END 2025-07-02 14:29 | disposition home or self-care (01) ==
LOC: HO.HCC 14:20
PROVIDERS: Visit Provider Clinical Nurse Specialist Psychiatric/Mental Health
DX: F11.21 Opioid dependence, in remission (principal)
CPT/HCPCS: 99213

== ENCOUNTER → 2025-07-02 14:20 | Outpatient (BNVA) | payer OTHER, SELFPAY | PROVIDERS: Visit Provider Clinical Nurse Specialist Psychiatric/Mental Health | DX: F11.21 Opioid dependence, in remission (principal) | CPT/HCPCS: 99212 ==